=== PATIENT | female | born 1960 | race Caucasian/White ===

== ENCOUNTER 2019-02-18 14:29 | Emergency (ER) | payer OTHER ==
[~2019-02-18] VITALS: Ht 157.5 cm; Wt 111.1 kg
[2019-02-18 14:34] VITALS: BP_SYST 167
[2019-02-18 15:13] LABS: BASOPHILS % (AUTO) 0.6 % (0.0-2.0); EOSINOPHILS # (AUTO) 0.1 K/uL (0.0-0.4); EOSINOPHILS % (AUTO) 1.8 % (0.0-4.0); HEMOGLOBIN 12.6 g/dL (12.0-16.0); LYMPHOCYTES # (AUTO) 1.4 K/uL (1.0-5.5); LYMPHOCYTES % (AUTO) 23.9 % (20.5-51.5); MEAN CORPUSCULAR HEMOGLOBIN 31 pg (27-31); MEAN CORPUSCULAR HGB CONC 33 % (32-36); MEAN CORPUSCULAR VOLUME 93 fL (79.0-98.0); MONOCYTES # (AUTO) 0.4 K/uL (0.0-1.0); MONOCYTES % (AUTO) 7.1 % (1.7-9.3); NEUTROPHILS # (AUTO) 3.9 K/uL (1.8-7.7); NEUTROPHILS % (AUTO) 66.6 % (40.0-70.0); PLATELET COUNT (AUTO) 240 K/uL (130-430); RED CELL DISTRIBUTION WIDTH 15.2 % (9.0-15.0); WHITE BLOOD COUNT (AUTO) 5.9 K/uL (4.8-10.8)
[2019-02-18 15:34] LABS: PROTHROMBIN TIME 9.7 SECS (9.5-12.5)
[2019-02-18 15:41] LABS: CALCIUM 8.4 mg/dL (8.4-11.0); CREATININE 0.75 mg/dL (0.55-1.30); POTASSIUM 4.3 mmol/L (3.5-5.1)
[2019-02-18 15:44] LABS: ALBUMIN 3.5 g/dL (3.4-4.8); TOTAL BILIRUBIN 0.3 mg/dL (0.0-1.0)
[2019-02-18] MEDS: NACL 0.9% 1,000 ML IV ONE (17:27)
[2019-02-18] MEDS: KETOROLAC TROMETHAMINE 30 MG VIAL IVP ONE (17:28)
[2019-02-18 18:10] VITALS: BP_SYST 130
== END 2019-02-18 18:09 | disposition home or self-care (01) ==
LOC: SED 14:29
DX: M54.31 Sciatica, right side (principal); I89.0 Lymphedema, not elsewhere classified; E11.65 Type 2 diabetes mellitus with hyperglycemia; I10 Essential (primary) hypertension
CPT/HCPCS: 36415; 80053; 85025; 85610; 85730; 93971; 96361; 96374; 99284; J1885; J7030

== ENCOUNTER 2020-04-10 17:23 | Inpatient (IN) | payer OTHER, SELFPAY ==
[~2020-04-10] VITALS: Ht 157.5 cm; Wt 117.9 kg
[2020-04-10 17:35] VITALS: BP_SYST 128
--- NOTE | 2020-04-10 17:58 | NUR ---
Patient to ER bed 02 to gown for evaluation. Side rails up.
--- NOTE | 2020-04-10 18:00 | NUR ---
Patient arrived in the ED c/o generalized weakness, LIGHTHEADEDNESS, DIZZY, and PALLOR for the last 4 days. Denied any chest pain or shortness of breath. Denied any fevers, chills, or vomiting. Patient is alert and oriented x4, respirations even and unlabored, speaking in full sentences, and ambulating with a steady gait. VSS, pain level 10/10. Informed of the approximate wait time. Instructed to notify ED staff for any changes in condition or worsening of symptoms while waiting to be seen by an ED provider. Patient verbalized understanding.
--- NOTE | 2020-04-10 18:03 | NUR ---
ER Dr. Wise at bedside examining patient.
[2020-04-10] MEDS ORDERED: NACL 0.9% 1,000 ML IV ONE (18:15)
[2020-04-10] MEDS ORDERED: ONDANSETRON HCL 4 MG/2 ML VIAL IVP ONE (18:15)
--- NOTE | 2020-04-10 18:27 | NUR ---
X-ray done at bedside as ordered by Dr. Wise. Patient tolerated the procedure well.
--- NOTE | 2020-04-10 18:29 | NUR ---
Rectal exam performed by DR. LARES with DOUG KATZ at bedside during procedure. Patient tolerated well.
--- NOTE | 2020-04-10 18:38 | NUR ---
ECG done at bedside as ordered by Dr. Wise. Patient tolerated the procedure well. ER Physician given copy of EKG for review.
[2020-04-10 18:43] LABS: BASOPHILS % (AUTO) 0.4 % (0.0-2.0); EOSINOPHILS % (AUTO) 0.4 % (0.0-4.0); LYMPHOCYTES # (AUTO) 1.6 K/uL (1.0-5.5); LYMPHOCYTES % (AUTO) 14.5 % (20.5-51.5); MEAN CORPUSCULAR HEMOGLOBIN 31 pg (27-31); MEAN CORPUSCULAR HGB CONC 33 % (32-36); MEAN CORPUSCULAR VOLUME 95 fL (79.0-98.0); MONOCYTES # (AUTO) 0.7 K/uL (0.0-1.0); MONOCYTES % (AUTO) 6.7 % (1.7-9.3); NEUTROPHILS # (AUTO) 8.6 K/uL (1.8-7.7); PLATELET COUNT (AUTO) 290 K/uL (130-430); RED CELL DISTRIBUTION WIDTH 18.2 % (9.0-15.0)
[2020-04-10 18:54] LABS: RED BLOOD CELL COUNT(AUTO) 1.95 MIL/uL (4.2-6.2)
[2020-04-10 19:01] LABS: HEMATOCRIT 18.5 % (36-48)
--- NOTE | 2020-04-10 19:02 | NUR ---
Report given and care transferred to DOUG Givens.
--- NOTE | 2020-04-10 19:06 | NUR ---
Covid-19 swabs and send to lab.
[2020-04-10 19:08] LABS: CALCIUM 8.7 mg/dL (8.4-11.0); CREATININE 0.81 mg/dL (0.55-1.30); POTASSIUM 3.7 mmol/L (3.5-5.1)
[2020-04-10 19:14] LABS: ALBUMIN 2.8 g/dL (3.4-4.8); TOTAL BILIRUBIN 0.1 mg/dL (0.0-1.0)
[2020-04-10 19:26] LABS: PROTHROMBIN TIME 10.4 SECS (9.5-12.5)
[2020-04-10] MEDS ORDERED: MORPHINE 2 MG/ML INJ. SYRINGE IVP PRN (20:00)
[2020-04-10] MEDS ORDERED: NALOXONE HCL 0.4 MG/ML AMP (NARCAN) IVP PRN (20:00)
[2020-04-10] MEDS ORDERED: ONDANSETRON HCL 4 MG/2 ML VIAL IVP PRN (20:00)
[2020-04-10] MEDS ORDERED: ALBUTEROL SULFATE 0.083% 2.5 MG/3 ML VIAL.NEB INH PRN (20:00)
[2020-04-10] MEDS ORDERED: ACETAMINOPHEN 325 MG TABLET PO PRN (20:00)
--- NOTE | 2020-04-10 20:01 | NUR ---
Patient will be admitted to care of . Admitted to Tele unit. Will go to room 117 B . Belongings list completed. Complete and up to date summary report printed. SBAR report to be given at bedside with opportunity for questions.
[2020-04-10] MEDS ORDERED: LISI40TA4 PO (20:14)
[2020-04-10] MEDS ORDERED: METF-510 PO (20:14)
[2020-04-10] MEDS ORDERED: INSU100V9 SQ (20:14)
--- NOTE | 2020-04-10 20:15 | NUR ---
Medication reconciliation completed with information provided by patient. Any prior medication reconciliation on file was reviewed and corrected.
[2020-04-10 20:18] VITALS: BP_SYST 136
--- NOTE | 2020-04-10 20:23 | NUR ---
ADMIT NOTE Received pt from ER to the floor with a diagnosis of gi bleed. Admission process initiated. patient oriented to pain management, safety and call light-teach back done.
--- NOTE | 2020-04-10 20:35 | NUR ---
INITIAL NOTES Patient is resting, no signs of acute respiratory distress at this time. IV site patent, dressings c/d/i. Oriented patient to plan of care and room. Call light within reach, bed alarm on, bed at lowest position. Will continue to monitor.
[2020-04-10 20:40] VITALS: BP_SYST 131
--- NOTE | 2020-04-10 20:56 | NUR ---
GI Consult Consult for Dr. Cohen was called, RE: GI Bleed SW: Tommie
[2020-04-10] MEDS: PANTOPRAZOLE SODIUM 40 MG/VIAL (PROTONIX) IVP SCH (21:00)
[2020-04-10] MEDS: NACL 0.9% 1,000 ML IV SCH (21:05)
[2020-04-10 21:45] LABS: BILIRUBIN,URINE NEGATIVE (NEGATIVE); BLOOD, URINE NEGATIVE (NEGATIVE); CLARITY/URINE CLEAR (CLEAR); COLOR,URINE YELLOW (YELLOW); GLUCOSE,URINE 3+ (NEGATIVE); KETONES,URINE TRACE (NEGATIVE); LEUKOCYTE ESTERASE ,URINE NEGATIVE (NEGATIVE); NITRITE, URINE NEGATIVE (NEGATIVE); PH,URINE 5.5 (5.0-8.0); PROTEIN URINE NEGATIVE (NEGATIVE); UROBILINOGEN,URINE 0.2 (0.2-1.0)
--- NOTE | 2020-04-10 22:41 | NUR ---
BT INITIATION: Consent signed per agreeing to administration of blood. Blood has been type and crossmatched. Blood sent from blood bank. Information on unit of blood checked against patient wristband at bedside by two nurses. All information matches. Patient or responsible democrat informed of potential complications associated with blood transfusion. Informed of possible transfusion reaction symptoms. Aware of need to notify nurse at once of itching, shortness of breath, flushing, feeling of impending doom, or other symptoms not previously present. Vital signs taken within 15 minutes prior to initiation of transfusion. RN will remain with patient for first 15 minutes of transfusion at which time vital signs will be re-assessed.
[2020-04-11] MEDS ORDERED: NAPR-1172 PO (00:53)
[2020-04-11] MEDS ORDERED: ATEN-41 PO (00:53)
[2020-04-11] MEDS ORDERED: PREG75CA PO (00:53)
[2020-04-11] MEDS ORDERED: GLIP10TA3 PO (00:53)
[2020-04-11] MEDS ORDERED: ROSU10TA2 PO (00:56)
[2020-04-11] MEDS ORDERED: SERT50TA12 PO (00:56)
[2020-04-11] MEDS ORDERED: PRED5TAB PO (00:56)
[2020-04-11] MEDS ORDERED: ASPI-1155 PO (01:03)
--- NOTE | 2020-04-11 01:04 | NUR ---
SPOKE TO DR. BENJAMIN, NOTIFIED OF BLOOD SUGAR OF 265, AND PATIENT TO BE NPO PAST MIDNIGHT. DR. BENJAMIN WANTS 4 UNITS OF INSULIN AT THIS TIME AND TO HOLD THE INSULIN FOR THE 0300 BLOOD SUGAR CHECK. NO CHANGE OF ORDERS FOR THE NS.
--- NOTE | 2020-04-11 01:06 | NUR ---
HIGH ALERT NOTE: Called Dr. BENJAMIN back at 0106 identified within the medical roster to verify physician authenticity.
[2020-04-11] MEDS: INSULIN REGULAR, HUMAN 100 UNITS/ML, 10 ML VIAL (humuLIN R) SUBCUT PRN ×5 (01:09→22:30)
[2020-04-11 01:10] VITALS: BP_SYST 143
--- NOTE | 2020-04-11 01:35 | NUR ---
SECOND BT INITIATION: Consent signed per agreeing to administration of blood. Blood has been type and crossmatched. Blood sent from blood bank. Information on unit of blood checked against patient wristband at bedside by two nurses. All information matches. Patient or responsible green party informed of potential complications associated with blood transfusion. Informed of possible transfusion reaction symptoms. Aware of need to notify nurse at once of itching, shortness of breath, flushing, feeling of impending doom, or other symptoms not previously present. Vital signs taken within 15 minutes prior to initiation of transfusion. RN will remain with patient for first 15 minutes of transfusion at which time vital signs will be re-assessed.
--- NOTE | 2020-04-11 04:42 | NUR ---
Patient is resting, no signs of acute respiratory distress noted. Call light within reach. Will continue to monitor.
[2020-04-11] MEDS: NACL 0.9% 1,000 ML IV SCH ×3 (06:00→22:25)
[2020-04-11 06:34] LABS: BASOPHILS % (AUTO) 0.5 % (0.0-2.0); EOSINOPHILS # (AUTO) 0.1 K/uL (0.0-0.4); EOSINOPHILS % (AUTO) 1.4 % (0.0-4.0); HEMATOCRIT 23.2 % (36-48); HEMOGLOBIN 7.9 g/dL (12.0-16.0); LYMPHOCYTES # (AUTO) 1.9 K/uL (1.0-5.5); LYMPHOCYTES % (AUTO) 21.5 % (20.5-51.5); MEAN CORPUSCULAR HEMOGLOBIN 31 pg (27-31); MEAN CORPUSCULAR HGB CONC 34 % (32-36); MEAN CORPUSCULAR VOLUME 92 fL (79.0-98.0); MONOCYTES # (AUTO) 0.5 K/uL (0.0-1.0); MONOCYTES % (AUTO) 5.5 % (1.7-9.3); NEUTROPHILS # (AUTO) 6.2 K/uL (1.8-7.7); NEUTROPHILS % (AUTO) 71.1 % (40.0-70.0); PLATELET COUNT (AUTO) 248 K/uL (130-430); RED BLOOD CELL COUNT(AUTO) 2.52 MIL/uL (4.2-6.2); RED CELL DISTRIBUTION WIDTH 16.2 % (9.0-15.0); WHITE BLOOD COUNT (AUTO) 8.7 K/uL (4.8-10.8)
--- NOTE | 2020-04-11 07:03 | NUR ---
CLOSING NOTES Patient is resting, no signs of acute respiratory distress at this time. IV site patent, dressings c/d/i. 2 units of blood was provided to patient. Call light within reach, bed alarm on, bed at lowest position. All needs met throughout shift, no nausea or pain at this time. Will endorse care to oncoming shift.
--- NOTE | 2020-04-11 07:30 | NUR ---
OPENING NOTES: RECEIVED PATIENT FROM MANAGER OF LOSS PREVENTION OPERATIONS NURSE. PATIENT IS AWAKE AND ALERT x4 LAYING DOWN IN BED. PATIENT DENIES ANY PAIN AT THE MOMENT. PATIENT IS TOLERATING OXYGEN ON ROOM AIR WITH NO SIGNS OF DISTRESS OR SHORTNESS OF BREATH NOTED. IV SITE IS PATENT WITH NO SIGNS OF INFILTRATION NOTED AND RUNNING FLUIDS ORDERED. PATIENT IN STABLE CONDITION. SAFETY, FALL AND ASPIRATION PRECAUTIONS ARE IN PLACE. BED LOCKED IN LOWEST POSITION WITH CALL LIGHT IN REACH. WILL CONTINUE TO MONITOR PATIENT FOR ANY CHANGES.
[2020-04-11 07:36] LABS: ALBUMIN 2.6 g/dL (3.4-4.8); CREATININE 0.59 mg/dL (0.55-1.30); TOTAL BILIRUBIN 0.2 mg/dL (0.0-1.0)
[2020-04-11 08:03] VITALS: BP_SYST 145
[2020-04-11] MEDS: PANTOPRAZOLE SODIUM 40 MG/VIAL (PROTONIX) IVP SCH ×2 (08:28→22:11)
--- NOTE | 2020-04-11 09:00 | NUR ---
Nutrition Update Cleve scale 18 noted. Pt admitted for gastrointestinal bleed Diet: Clear Liquid BMI: 47.6 kg/m2 RD to follow per nutrition care standards.
[2020-04-11] MEDS ORDERED: ATENOLOL 25 MG TABLET(TENORMIN) PO ONE (10:30)
[2020-04-11] MEDS ORDERED: predniSONE 5 MG TABLET PO ONE (10:30)
--- NOTE | 2020-04-11 10:30 | NUR ---
REPORT/ CHANGE OF CARE: REPORT GIVEN TO DOUG ANAYA. PATIENT IS AWAKE AND ALERT x4 LAYING DOWN IN BED. PATIENT IS TOLERATING OXYGEN ON ROOM AIR WITH NO SIGNS OF DISTRESS OR SHORTNESS OF BREATH NOTED. IV SITE IS PATENT WITH NO SIGNS OF INFILTRATION NOTED AND RUNNING FLUIDS ORDERED. PATIENT IN STABLE CONDITION.
[2020-04-11 12:54] VITALS: BP_SYST 159
[2020-04-11 16:24] LABS: BASOPHILS % (AUTO) 0.3 % (0.0-2.0); EOSINOPHILS # (AUTO) 0.1 K/uL (0.0-0.4); EOSINOPHILS % (AUTO) 1.1 % (0.0-4.0); HEMATOCRIT 22.3 % (36-48); HEMOGLOBIN 7.4 g/dL (12.0-16.0); LYMPHOCYTES # (AUTO) 1.3 K/uL (1.0-5.5); LYMPHOCYTES % (AUTO) 17.1 % (20.5-51.5); MEAN CORPUSCULAR HEMOGLOBIN 31 pg (27-31); MEAN CORPUSCULAR HGB CONC 33 % (32-36); MEAN CORPUSCULAR VOLUME 93 fL (79.0-98.0); MONOCYTES # (AUTO) 0.4 K/uL (0.0-1.0); MONOCYTES % (AUTO) 5.6 % (1.7-9.3); NEUTROPHILS # (AUTO) 5.9 K/uL (1.8-7.7); NEUTROPHILS % (AUTO) 75.9 % (40.0-70.0); PLATELET COUNT (AUTO) 222 K/uL (130-430); RED BLOOD CELL COUNT(AUTO) 2.41 MIL/uL (4.2-6.2); WHITE BLOOD COUNT (AUTO) 7.7 K/uL (4.8-10.8)
[2020-04-11 16:59] VITALS: BP_SYST 139
--- NOTE | 2020-04-11 17:05 | NUR ---
PT IN BED, NO C/O PAIN, INFORMED PT THAT DR SOW DOES NOT WANT TO ORDER ANY CONSTIPATION MEDICATION, WANTS TO CHECK FIRST WHAT IS GOING ON WITH PT AND WILL DO EGD IN AM. PT VERBALIZED UNDERSTANDING.
--- NOTE | 2020-04-11 19:44 | NUR ---
CLOSING NOTES PT HAS BEEN STABLE, BLOOD SUGAR CHECKED EVERY 4 HOURS, BLOOD SUGAR STILL ELEVATED. PT WILL HAVE EGD IN AM. ENDORSED TO NIGHT NURSE.
--- NOTE | 2020-04-11 19:45 | NUR ---
CHANGE OF SHIFT; endorsed pt. for GI bleed. had 2 units of PRBC during admission. no rep. distress. call light within reach. schedule for EGD tomorrow.
--- NOTE | 2020-04-11 20:00 | NUR ---
NOTES: pt. said, she wants to sleep. will recheck VS later. repositioned self for comfort. IV infusing via left antecubital. on monitor worker and shows sinus rhythm. moves all extremities well, use BSC. call light within reach.
[2020-04-11 21:30] VITALS: BP_SYST 151
--- NOTE | 2020-04-11 21:45 | NUR ---
NOTES: pt. awakened. VS checked. due medications given. reminded to be NPO after midnight.
[2020-04-11] MEDS: SERTRALINE HCL 50 MG TABLET PO SCH (22:11)
[2020-04-11] MEDS: PREGABALIN 75 MG CAPSULE (LYRICA) PO SCH (22:11)
--- NOTE | 2020-04-11 23:00 | NUR ---
NOTES: BS checked, schedule every 4 hours. sliding scale coverage given. pt. needs attended.
--- NOTE | 2020-04-12 00:30 | NUR ---
NOTES: pt. sleeping when checked. repositioned self. no distress.
--- NOTE | 2020-04-12 02:00 | NUR ---
NOTES: cardiac pattern unchanged. IVF continuous.
--- NOTE | 2020-04-12 03:45 | NUR ---
NOTES: pt. sleeping, slightly awakened to check BS 155, n sliding scale given since pt. is NPO. went back to sleep.
--- NOTE | 2020-04-12 05:30 | NUR ---
NOTES: pt. still asleep. IVF continuous.
[2020-04-12 06:00] VITALS: BP_SYST 161
[2020-04-12 06:29] LABS: BASOPHILS % (AUTO) 0.5 % (0.0-2.0); EOSINOPHILS # (AUTO) 0.1 K/uL (0.0-0.4); EOSINOPHILS % (AUTO) 1.9 % (0.0-4.0); HEMATOCRIT 22.9 % (36-48); HEMOGLOBIN 7.6 g/dL (12.0-16.0); LYMPHOCYTES # (AUTO) 1.8 K/uL (1.0-5.5); LYMPHOCYTES % (AUTO) 23.6 % (20.5-51.5); MEAN CORPUSCULAR HEMOGLOBIN 31 pg (27-31); MEAN CORPUSCULAR HGB CONC 33 % (32-36); MEAN CORPUSCULAR VOLUME 93 fL (79.0-98.0); MONOCYTES # (AUTO) 0.5 K/uL (0.0-1.0); MONOCYTES % (AUTO) 6.8 % (1.7-9.3); NEUTROPHILS % (AUTO) 67.2 % (40.0-70.0); PLATELET COUNT (AUTO) 219 K/uL (130-430); RED BLOOD CELL COUNT(AUTO) 2.47 MIL/uL (4.2-6.2); RED CELL DISTRIBUTION WIDTH 17.6 % (9.0-15.0); WHITE BLOOD COUNT (AUTO) 7.4 K/uL (4.8-10.8)
--- NOTE | 2020-04-12 06:42 | NUR ---
CLOSING NOTES; IVF patent. BS checked 201, did not give insulin since pt. NPO for EGD this am. no comlaints manifested. still sleeping. VS rechecked. for further care and assist. call light within reach
[2020-04-12 06:45] LABS: PROTHROMBIN TIME 10.3 SECS (9.5-12.5)
[2020-04-12] MEDS ORDERED: SIMETHICONE 40 MG/0.6 ML ML ONE (07:41)
[2020-04-12 08:00] VITALS: BP_SYST 151
[2020-04-12] MEDS: fentaNYL CITRATE/PF 100 MCG/2 ML AMP ONE ×2 (08:05→09:54)
[2020-04-12] MEDS: MIDAZOLAM HCL 5 MG/5 ML VIAL ONE ×2 (08:05→09:55)
[2020-04-12] MEDS ORDERED: ATORVASTATIN 20 MG TABLET PO SCH (09:00)
[2020-04-12] MEDS ORDERED: ATENOLOL 25 MG TABLET(TENORMIN) PO SCH (09:00)
[2020-04-12] MEDS ORDERED: lisinopriL 20 MG TABLET PO SCH (09:00)
[2020-04-12] MEDS ORDERED: ROSUVASTATIN CALCIUM 5 MG/TAB (CRESTOR) PO SCH (09:00)
[2020-04-12] MEDS ORDERED: predniSONE 5 MG TABLET PO SCH (09:00)
[2020-04-12] MEDS ORDERED: POLYETHYLENE GLYCOL 3350, 17 GM/ POWD.PACK PO SCH (09:00)
[2020-04-12] MEDS: PANTOPRAZOLE SODIUM 40 MG/VIAL (PROTONIX) IVP SCH (10:12)
[2020-04-12] MEDS: PREGABALIN 75 MG CAPSULE (LYRICA) PO SCH (10:12)
[2020-04-12] MEDS: SERTRALINE HCL 50 MG TABLET PO SCH (10:13)
[2020-04-12] MEDS ORDERED: PRO40 PO (10:28)
[2020-04-12 12:00] VITALS: BP_SYST 147
[2020-04-12] MEDS: INSULIN REGULAR, HUMAN 100 UNITS/ML, 10 ML VIAL (humuLIN R) SUBCUT PRN (13:29)
[2020-04-12 13:49] VITALS: BP_SYST 150
[2020-04-12 13:53] VITALS: BP_SYST 150
[2020-04-12 16:00] VITALS: BP_SYST 108
== END 2020-04-12 14:50 | disposition home or self-care (01) | DRG 377 ==
LOC: SED 17:23 → STU 19:19 → SMU 04-12 10:49
PROVIDERS: ADMIT Internal Medicine Hospice and Palliative Medicine; ATTEND Internal Medicine Hospice and Palliative Medicine
PROC: 30233N1 Transfusion of Nonautologous Red Blood Cells into Peripheral Vein, Percutaneous Approach (ICD-10-PCS; 2020-04-10)
PROC: 0DB68ZX Excision of Stomach, Via Natural or Artificial Opening Endoscopic, Diagnostic (ICD-10-PCS; principal; 2020-04-12 08:00)
DX: K25.4 Chronic or unspecified gastric ulcer with hemorrhage (principal); E43 Unspecified severe protein-calorie malnutrition; Z68.41 Body mass index [BMI] 40.0-44.9, adult; Z68.42 Body mass index [BMI] 45.0-49.9, adult; K26.4 Chronic or unspecified duodenal ulcer with hemorrhage; D64.9 Anemia, unspecified; E11.65 Type 2 diabetes mellitus with hyperglycemia; E66.01 Morbid (severe) obesity due to excess calories; E11.40 Type 2 diabetes mellitus with diabetic neuropathy, unspecified; I10 Essential (primary) hypertension; M06.9 Rheumatoid arthritis, unspecified; K63.5 Polyp of colon; Z20.828 Contact with and (suspected) exposure to other viral communicable diseases; K64.9 Unspecified hemorrhoids; K29.70 Gastritis, unspecified, without bleeding; Z83.3 Family history of diabetes mellitus
CPT/HCPCS: 36415; 36430; 43239; 71045; 80053; 81003; 82272; 82962; 85025; 85610-TC; 85730-TC; 86886; 86900; 86901; 86920; 88305; 88312; 88313; 93005; 96361; 96374; 99291; C9113; G0378; J2250; J2270; J2405; J3010; J7030; J7040; J7512; P9021